=== PATIENT | female | born 1960 | race Caucasian/White ===

== ENCOUNTER → 2021-09-20 | Outpatient (CLI) | payer BC, OTHER | LOC: KOH-I 10:49 | DX: R10.11 Right upper quadrant pain (principal); K83.8 Other specified diseases of biliary tract | CPT/HCPCS: 76700 ==

== ENCOUNTER → 2021-10-12 | Outpatient (CLI) | payer BC, OTHER | LOC: ECHO 08:41 → NM 10:00 | DX: I20.8 Other forms of angina pectoris (principal); R53.83 Other fatigue; I08.1 Rheumatic disorders of both mitral and tricuspid valves | CPT/HCPCS: ECHO; 93306 ==

== ENCOUNTER → 2021-10-26 | Outpatient (CLI) | payer BC, OTHER | LOC: MRI 09:51 | DX: K83.1 Obstruction of bile duct (principal); R10.13 Epigastric pain; N32.89 Other specified disorders of bladder | CPT/HCPCS: 74181 ==

== ENCOUNTER 2021-12-31 20:20 | Emergency (ER) | payer OTHER, BC ==
[2021-12-31] MEDS ORDERED: HYDROCODON-ACE1 EAC4 PO (23:43)
== END 2021-12-31 23:46 | disposition home or self-care (01) ==
LOC: ER1 20:20
DX: R07.89 Other chest pain (principal); M54.6 Pain in thoracic spine; R07.81 Pleurodynia; I10 Essential (primary) hypertension; V43.52XA Car driver injured in collision with other type car in traffic accident, initial encounter; Y92.410 Unspecified street and highway as the place of occurrence of the external cause
CPT/HCPCS: 71045; 71046; 72072; 99283